=== PATIENT | male | born 1950 | race Caucasian/White ===

== ENCOUNTER 2021-01-11 06:28 | Inpatient (IN) | payer OTHER ==
[~2021-01-11] VITALS: Ht 182.9 cm; Wt 134.9 kg
[2021-01-11] VITALS (16 sets, daily range): BP systolic 67–185; BP diastolic 34–82
[2021-01-11 07:08] LABS: BASO % 0.5 % (0.0-1.0); EOS % 0.3 % (1.0-4.0); HEMATOCRIT 49.4 % (42.0-52.0); LYMPH # 1.4 10*3/uL (1.3-4.4); LYMPH % 15.9 % (27.0-41.0); MEAN CORPUSCULAR HGB 27.9 pg (27.0-31.0); MEAN CORPUSCULAR HGB CONC 31.4 g/dl (33.0-37.0); MEAN PLATELET VOLUME 9.3 fl (9.6-12.3); MONO # 0.6 10*3/uL (0.1-1.0); MONO % 6.5 % (3.0-9.0); NEUT # 6.7 10*3/uL (2.3-7.9); NEUT % 75.7 % (47.0-73.0); PLATELET COUNT AUTOMATED 254 10*3/uL (130-400); RED BLOOD COUNT 5.55 10*6/uL (4.50-5.90); RED CELL DISTRI WIDTH 13.6 % (0-14.5); WHITE BLOOD COUNT 8.9 10*3/uL (4.8-10.8)
[2021-01-11] MEDS ORDERED: LIPITOR40 MG PO (07:24)
[2021-01-11 07:25] LABS: ACT PARTIAL THROMBO TIME 25.2 SECONDS (20.0-32.1); INTERNATIONAL NORM RATIO 1.2 (2.0-3.5)
[2021-01-11 07:25] LABS: ALBUMIN 3.4 gm/dl (3.1-4.5); ALKALINE PHOSPHATASE 53 U/L (45-117); BUN 14 mg/dl (7-24); CHLORIDE 96 mmol/L (98-107); CREATININE 0.84 mg/dL (0.70-1.30); POTASSIUM 3.8 mmol/L (3.5-5.1); SGOT/AST 31 IU/L (3-35); SGPT/ALT 88 U/L (12-78); SODIUM 133 mmol/L (136-145)
[2021-01-11] MEDS ORDERED: METFORMIN HCL1000 M1 PO (07:25)
[2021-01-11] MEDS ORDERED: ESCITALOPRAM OX10 MG PO (07:26)
[2021-01-11] MEDS ORDERED: GLIMEPIRIDE4 M1 PO (07:26)
[2021-01-11] MEDS ORDERED: MEMANTINE HCL10 MG PO (07:27)
[2021-01-11] MEDS ORDERED: DONEPEZIL HCL10 MG PO (07:29)
[2021-01-11] MEDS ORDERED: CLARITIN10 MG PO (07:30)
[2021-01-11] MEDS ORDERED: CARVEDILOL25 MG PO (07:30)
[2021-01-11] MEDS ORDERED: ASPIRIN CHEWABL81 MG PO (07:30)
[2021-01-11 07:31] LABS: TROPONIN I < 0.015 ng/ml (<0.045)
[2021-01-11] MEDS ORDERED: VITAMIN D325 MC1 PO (07:31)
[2021-01-11 09:54] LABS: ABG BASE EXCESS 6.5 mmol/L (-2.0-2.0); ARTERIAL BLOOD GAS PO2 183.9 (80-90)
[2021-01-11 09:59] LABS: ARTERIAL BLOOD GAS PH 7.116 (7.35-7.45)
[2021-01-11 12:01] LABS: ABG BASE EXCESS 10.2 mmol/L (-2.0-2.0); ARTERIAL BLOOD GAS PO2 93.7 (80-90)
[2021-01-11 12:05] LABS: ARTERIAL BLOOD GAS PH 7.191 (7.35-7.45)
[2021-01-11 14:13] LABS: ABG BASE EXCESS 9.1 mmol/L (-2.0-2.0); ARTERIAL BLOOD GAS PO2 79.8 (80-90)
[2021-01-11 14:14] LABS: ARTERIAL BLOOD GAS PH 7.155 (7.35-7.45)
[2021-01-11 17:02] LABS: ABG BASE EXCESS 8.6 mmol/L (-2.0-2.0); ARTERIAL BLOOD GAS PH 7.346 (7.35-7.45); ARTERIAL BLOOD GAS PO2 71.8 (80-90)
[2021-01-11 19:40] LABS: ABG BASE EXCESS 10.7 mmol/L (-2.0-2.0); ARTERIAL BLOOD GAS PH 7.398 (7.35-7.45); ARTERIAL BLOOD GAS PO2 66.7 (80-90)
[2021-01-11 23:58] LABS: ABG BASE EXCESS 10.5 mmol/L (-2.0-2.0); ARTERIAL BLOOD GAS PH 7.44 (7.35-7.45)
[2021-01-12] VITALS (12 sets, daily range): BP systolic 91–137; BP diastolic 49–74
[2021-01-12 06:15] LABS: BASO % 0.3 % (0.0-1.0); EOS # 0.1 10*3/uL (0.0-0.4); EOS % 0.6 % (1.0-4.0); HEMATOCRIT 45.1 % (42.0-52.0); LYMPH # 1.9 10*3/uL (1.3-4.4); LYMPH % 17.4 % (27.0-41.0); MEAN CELL VOLUME 89.8 fl (80.0-94.0); MEAN CORPUSCULAR HGB 28.1 pg (27.0-31.0); MEAN CORPUSCULAR HGB CONC 31.3 g/dl (33.0-37.0); MEAN PLATELET VOLUME 9.6 fl (9.6-12.3); MONO # 1.2 10*3/uL (0.1-1.0); MONO % 11.4 % (3.0-9.0); NEUT # 7.5 10*3/uL (2.3-7.9); NEUT % 69.4 % (47.0-73.0); PLATELET COUNT AUTOMATED 225 10*3/uL (130-400); RED BLOOD COUNT 5.02 10*6/uL (4.50-5.90); RED CELL DISTRI WIDTH 14.1 % (0-14.5); WHITE BLOOD COUNT 10.8 10*3/uL (4.8-10.8)
[2021-01-12 06:21] LABS: CHLORIDE 99 mmol/L (98-107); POTASSIUM 3.5 mmol/L (3.5-5.1); SODIUM 139 mmol/L (136-145)
[2021-01-12 06:31] LABS: ACT PARTIAL THROMBO TIME 24.4 SECONDS (20.0-32.1); INTERNATIONAL NORM RATIO 1.2 (2.0-3.5)
[2021-01-12 06:38] LABS: ALBUMIN 2.9 gm/dl (3.1-4.5); ALKALINE PHOSPHATASE 41 U/L (45-117); CHOLESTEROL 145 mg/dL (<200); CREATININE 1.24 mg/dL (0.70-1.30); FREE T4 0.92 ng/dl (0.76-1.46); LDL CHOLESTEROL 49 mg/dL (9-159); SGOT/AST 18 IU/L (3-35); SGPT/ALT 52 U/L (12-78); THYROID STIM HORMONE (HS) 0.297 uIU/ml (0.358-4.75); TRIGLYCERIDES 325 mg/dl (<150)
[2021-01-12 06:42] LABS: BUN 28 mg/dl (7-24)
[2021-01-12 07:23] LABS: ABG BASE EXCESS 11.2 mmol/L (-2.0-2.0); ARTERIAL BLOOD GAS PH 7.464 (7.35-7.45); ARTERIAL BLOOD GAS PO2 62.1 (80-90)
[2021-01-12 07:39] LABS: VITAMIN D, 25-HYDROXY 27.1 ng/mL (30-100)
[2021-01-12 11:37] LABS: ABG BASE EXCESS 10.2 mmol/L (-2.0-2.0); ARTERIAL BLOOD GAS PH 7.411 (7.35-7.45); ARTERIAL BLOOD GAS PO2 80.8 (80-90)
[2021-01-13] VITALS (9 sets, daily range): BP systolic 96–146; BP diastolic 44–82
[2021-01-13 06:07] LABS: ALBUMIN 2.6 gm/dl (3.1-4.5); ALKALINE PHOSPHATASE 40 U/L (45-117); BUN 31 mg/dl (7-24); CHLORIDE 100 mmol/L (98-107); CREATININE 1.28 mg/dL (0.70-1.30); POTASSIUM 2.9 mmol/L (3.5-5.1); SGOT/AST 20 IU/L (3-35); SGPT/ALT 37 U/L (12-78); SODIUM 139 mmol/L (136-145); TOTAL PROTEIN 5.9 gm/dL (6.4-8.2)
[2021-01-13 06:10] LABS: BASO # 0.1 10*3/uL (0.0-0.1); BASO % 0.7 % (0.0-1.0); EOS # 0.2 10*3/uL (0.0-0.4); HEMATOCRIT 44.9 % (42.0-52.0); LYMPH # 1.6 10*3/uL (1.3-4.4); LYMPH % 18.9 % (27.0-41.0); MEAN CELL VOLUME 89.1 fl (80.0-94.0); MEAN CORPUSCULAR HGB 27.8 pg (27.0-31.0); MEAN CORPUSCULAR HGB CONC 31.2 g/dl (33.0-37.0); MEAN PLATELET VOLUME 9.6 fl (9.6-12.3); MONO % 11.4 % (3.0-9.0); NEUT # 5.7 10*3/uL (2.3-7.9); NEUT % 66.1 % (47.0-73.0); PLATELET COUNT AUTOMATED 212 10*3/uL (130-400); RED BLOOD COUNT 5.04 10*6/uL (4.50-5.90); RED CELL DISTRI WIDTH 14.6 % (0-14.5); WHITE BLOOD COUNT 8.7 10*3/uL (4.8-10.8)
[2021-01-13 07:36] LABS: ARTERIAL BLOOD GAS PH 7.433 (7.35-7.45); ARTERIAL BLOOD GAS PO2 82.8 (80-90)
[2021-01-13 12:47] LABS: ABG BASE EXCESS 10.1 mmol/L (-2.0-2.0); ARTERIAL BLOOD GAS PH 7.377 (7.35-7.45); ARTERIAL BLOOD GAS PO2 82.7 (80-90)
[2021-01-14] VITALS: BP 122/72
[2021-01-14 04:00] VITALS: BP 113/77
[2021-01-14 05:19] LABS: ALBUMIN 2.5 gm/dl (3.1-4.5); ALKALINE PHOSPHATASE 37 U/L (45-117); BUN 28 mg/dl (7-24); CHLORIDE 106 mmol/L (98-107); CREATININE 1.16 mg/dL (0.70-1.30); POTASSIUM 3.3 mmol/L (3.5-5.1); SGOT/AST 24 IU/L (3-35); SGPT/ALT 29 U/L (12-78); SODIUM 136 mmol/L (136-145)
[2021-01-14 06:11] LABS: BASO # 0.1 10*3/uL (0.0-0.1); BASO % 0.7 % (0.0-1.0); EOS # 0.3 10*3/uL (0.0-0.4); EOS % 4.1 % (1.0-4.0); HEMATOCRIT 45.1 % (42.0-52.0); LYMPH # 1.5 10*3/uL (1.3-4.4); LYMPH % 17.4 % (27.0-41.0); MEAN CELL VOLUME 91.9 fl (80.0-94.0); MEAN CORPUSCULAR HGB 27.7 pg (27.0-31.0); MEAN CORPUSCULAR HGB CONC 30.2 g/dl (33.0-37.0); MEAN PLATELET VOLUME 10.2 fl (9.6-12.3); MONO # 0.9 10*3/uL (0.1-1.0); MONO % 11.2 % (3.0-9.0); NEUT # 5.5 10*3/uL (2.3-7.9); NEUT % 65.9 % (47.0-73.0); PLATELET COUNT AUTOMATED 203 10*3/uL (130-400); RED BLOOD COUNT 4.91 10*6/uL (4.50-5.90); RED CELL DISTRI WIDTH 14.6 % (0-14.5); WHITE BLOOD COUNT 8.4 10*3/uL (4.8-10.8)
[2021-01-14 08:00] VITALS: BP 131/71
[2021-01-14 12:00] VITALS: BP 123/63
[2021-01-14 16:00] VITALS: BP 121/66
[2021-01-14 20:00] VITALS: BP 115/67
[2021-01-15] VITALS: BP 124/52
[2021-01-15 04:00] VITALS: BP 106/42
[2021-01-15 05:55] LABS: ALBUMIN 2.4 gm/dl (3.1-4.5); ALKALINE PHOSPHATASE 37 U/L (45-117); BUN 26 mg/dl (7-24); CHLORIDE 104 mmol/L (98-107); CREATININE 0.89 mg/dL (0.70-1.30); POTASSIUM 3.5 mmol/L (3.5-5.1); SGOT/AST 20 IU/L (3-35); SGPT/ALT 26 U/L (12-78); SODIUM 138 mmol/L (136-145); TOTAL PROTEIN 5.9 gm/dL (6.4-8.2)
[2021-01-15 06:34] LABS: BASO # 0.1 10*3/uL (0.0-0.1); BASO % 0.8 % (0.0-1.0); EOS # 0.5 10*3/uL (0.0-0.4); EOS % 6.1 % (1.0-4.0); HEMATOCRIT 41.8 % (42.0-52.0); LYMPH # 1.2 10*3/uL (1.3-4.4); LYMPH % 14.6 % (27.0-41.0); MEAN CELL VOLUME 90.7 fl (80.0-94.0); MEAN CORPUSCULAR HGB 27.8 pg (27.0-31.0); MEAN CORPUSCULAR HGB CONC 30.6 g/dl (33.0-37.0); MEAN PLATELET VOLUME 9.9 fl (9.6-12.3); MONO # 0.8 10*3/uL (0.1-1.0); MONO % 10.6 % (3.0-9.0); NEUT # 5.3 10*3/uL (2.3-7.9); NEUT % 67.3 % (47.0-73.0); PLATELET COUNT AUTOMATED 208 10*3/uL (130-400); RED BLOOD COUNT 4.61 10*6/uL (4.50-5.90); RED CELL DISTRI WIDTH 14.1 % (0-14.5); WHITE BLOOD COUNT 7.9 10*3/uL (4.8-10.8)
[2021-01-15 08:00] VITALS: BP 140/66
[2021-01-15 12:00] VITALS: BP 121/61
[2021-01-15 14:24] LABS: ABG BASE EXCESS 8.3 mmol/L (-2.0-2.0); ARTERIAL BLOOD GAS PH 7.458 (7.35-7.45); ARTERIAL BLOOD GAS PO2 71.4 (80-90)
[2021-01-15 16:00] VITALS: BP 125/63
[2021-01-15 20:00] VITALS: BP 140/69
[2021-01-16] VITALS: BP 142/73
[2021-01-16 08:00] VITALS: BP 128/72; BP 145/77
[2021-01-16 08:33] LABS: BASO # 0.1 10*3/uL (0.0-0.1); BASO % 0.8 % (0.0-1.0); EOS # 0.4 10*3/uL (0.0-0.4); EOS % 6.5 % (1.0-4.0); HEMATOCRIT 42.6 % (42.0-52.0); LYMPH # 1.1 10*3/uL (1.3-4.4); MEAN CELL VOLUME 88.9 fl (80.0-94.0); MEAN CORPUSCULAR HGB CONC 31.5 g/dl (33.0-37.0); MEAN PLATELET VOLUME 9.2 fl (9.6-12.3); MONO # 0.8 10*3/uL (0.1-1.0); MONO % 11.6 % (3.0-9.0); NEUT # 4.2 10*3/uL (2.3-7.9); NEUT % 63.3 % (47.0-73.0); PLATELET COUNT AUTOMATED 214 10*3/uL (130-400); RED BLOOD COUNT 4.79 10*6/uL (4.50-5.90); RED CELL DISTRI WIDTH 13.8 % (0-14.5); WHITE BLOOD COUNT 6.7 10*3/uL (4.8-10.8)
[2021-01-16 08:49] LABS: ALBUMIN 2.8 gm/dl (3.1-4.5); ALKALINE PHOSPHATASE 41 U/L (45-117); BUN 21 mg/dl (7-24); CHLORIDE 101 mmol/L (98-107); POTASSIUM 3.6 mmol/L (3.5-5.1); SGOT/AST 22 IU/L (3-35); SGPT/ALT 31 U/L (12-78); SODIUM 141 mmol/L (136-145); TOTAL PROTEIN 6.5 gm/dL (6.4-8.2)
[2021-01-16 12:00] VITALS: BP 133/72; BP 138/55
[2021-01-16 16:00] VITALS: BP 136/69
[2021-01-16 20:00] VITALS: BP 149/86
[2021-01-17] VITALS: BP 138/77
[2021-01-17 06:33] LABS: BASO # 0.1 10*3/uL (0.0-0.1); BASO % 1.5 % (0.0-1.0); EOS # 0.5 10*3/uL (0.0-0.4); EOS % 7.4 % (1.0-4.0); HEMATOCRIT 42.1 % (42.0-52.0); LYMPH # 1.1 10*3/uL (1.3-4.4); LYMPH % 18.3 % (27.0-41.0); MEAN CELL VOLUME 89.8 fl (80.0-94.0); MEAN CORPUSCULAR HGB 28.1 pg (27.0-31.0); MEAN CORPUSCULAR HGB CONC 31.4 g/dl (33.0-37.0); MEAN PLATELET VOLUME 9.6 fl (9.6-12.3); MONO # 0.8 10*3/uL (0.1-1.0); MONO % 13.7 % (3.0-9.0); NEUT # 3.6 10*3/uL (2.3-7.9); NEUT % 58.4 % (47.0-73.0); PLATELET COUNT AUTOMATED 221 10*3/uL (130-400); RED BLOOD COUNT 4.69 10*6/uL (4.50-5.90); RED CELL DISTRI WIDTH 13.8 % (0-14.5); WHITE BLOOD COUNT 6.1 10*3/uL (4.8-10.8)
[2021-01-17 06:50] LABS: ALBUMIN 2.8 gm/dl (3.1-4.5); ALKALINE PHOSPHATASE 41 U/L (45-117); BUN 16 mg/dl (7-24); CHLORIDE 104 mmol/L (98-107); POTASSIUM 3.5 mmol/L (3.5-5.1); SGOT/AST 27 IU/L (3-35); SGPT/ALT 36 U/L (12-78); SODIUM 141 mmol/L (136-145); TOTAL PROTEIN 6.3 gm/dL (6.4-8.2)
[2021-01-17 08:00] VITALS: BP 129/71
[2021-01-17 12:00] VITALS: BP 123/63
[2021-01-17 16:00] VITALS: BP 149/74
[2021-01-17 20:00] VITALS: BP 146/72
[2021-01-18] VITALS: BP 152/69
[2021-01-18 05:21] LABS: BUN 14 mg/dl (7-24); CHLORIDE 104 mmol/L (98-107); CREATININE 0.92 mg/dL (0.70-1.30); POTASSIUM 3.5 mmol/L (3.5-5.1); SODIUM 142 mmol/L (136-145)
[2021-01-18 06:21] LABS: BASO # 0.1 10*3/uL (0.0-0.1); BASO % 1.4 % (0.0-1.0); EOS # 0.4 10*3/uL (0.0-0.4); LYMPH # 1.5 10*3/uL (1.3-4.4); LYMPH % 25.4 % (27.0-41.0); MEAN CORPUSCULAR HGB CONC 31.1 g/dl (33.0-37.0); MEAN PLATELET VOLUME 9.5 fl (9.6-12.3); MONO # 0.7 10*3/uL (0.1-1.0); MONO % 11.2 % (3.0-9.0); NEUT # 3.2 10*3/uL (2.3-7.9); NEUT % 54.5 % (47.0-73.0); PLATELET COUNT AUTOMATED 240 10*3/uL (130-400); RED BLOOD COUNT 4.89 10*6/uL (4.50-5.90); RED CELL DISTRI WIDTH 13.7 % (0-14.5); WHITE BLOOD COUNT 5.8 10*3/uL (4.8-10.8)
[2021-01-18 08:00] VITALS: BP 139/68
[2021-01-18 12:00] VITALS: BP 134/75
[2021-01-18 16:00] VITALS: BP 127/92
[2021-01-18 20:00] VITALS: BP 153/78
[2021-01-19] VITALS: BP 142/69
[2021-01-19 06:39] LABS: BUN 14 mg/dl (7-24); CHLORIDE 103 mmol/L (98-107); CREATININE 0.85 mg/dL (0.70-1.30); POTASSIUM 3.6 mmol/L (3.5-5.1); SODIUM 136 mmol/L (136-145)
[2021-01-19 08:00] VITALS: BP 156/78
[2021-01-19] MEDS ORDERED: FUROSEMIDE20 M1 PO (11:59)
[2021-01-19] MEDS ORDERED: CARVEDILOL6.25 MG PO (11:59)
[2021-01-19 12:00] VITALS: BP 132/78
== END 2021-01-19 13:45 | disposition home or self-care (01) | DRG 208 ==
LOC: ED 06:28 → EDHOLD 09:12 → ICCU 09:12 → EDHOLD 09:50 → ICCU 10:05 → 4E 01-15 13:46
PROVIDERS: Emergency Medicine; Hospitalist; Internal Medicine; Internal Medicine Critical Care Medicine; Social Worker Clinical; ADMIT Student in an Organized Health Care Education/Training Program; ATTEND Student in an Organized Health Care Education/Training Program
PROC: 5A1945Z Respiratory Ventilation, 24-96 Consecutive Hours (ICD-10-PCS; principal; 2021-01-11)
PROC: 5A09357 Assistance with Respiratory Ventilation, Less than 24 Consecutive Hours, Continuous Positive Airway Pressure (ICD-10-PCS; 2021-01-11)
PROC: 0BH17EZ Insertion of Endotracheal Airway into Trachea, Via Natural or Artificial Opening (ICD-10-PCS; 2021-01-11)
PROC: 5A09357 Assistance with Respiratory Ventilation, Less than 24 Consecutive Hours, Continuous Positive Airway Pressure (ICD-10-PCS; 2021-01-13)
PROC: 5A0935A Assistance with Respiratory Ventilation, Less than 24 Consecutive Hours, High Flow/Velocity Cannula (ICD-10-PCS; 2021-01-13)
PROC: 5A09357 Assistance with Respiratory Ventilation, Less than 24 Consecutive Hours, Continuous Positive Airway Pressure (ICD-10-PCS; 2021-01-14)
PROC: 5A0935A Assistance with Respiratory Ventilation, Less than 24 Consecutive Hours, High Flow/Velocity Cannula (ICD-10-PCS; 2021-01-15)
PROC: 5A09357 Assistance with Respiratory Ventilation, Less than 24 Consecutive Hours, Continuous Positive Airway Pressure (ICD-10-PCS; 2021-01-15)
DX: J96.01 Acute respiratory failure with hypoxia (principal); G93.41 Metabolic encephalopathy; I62.00 Nontraumatic subdural hemorrhage, unspecified; I50.31 Acute diastolic (congestive) heart failure; E87.2 Acidosis; E87.3 Alkalosis; E44.0 Moderate protein-calorie malnutrition; E87.1 Hypo-osmolality and hyponatremia; Z68.41 Body mass index [BMI] 40.0-44.9, adult; I11.0 Hypertensive heart disease with heart failure; E11.65 Type 2 diabetes mellitus with hyperglycemia; F03.90 Unspecified dementia, unspecified severity, without behavioral disturbance, psychotic disturbance, mood disturbance, and anxiety; I16.0 Hypertensive urgency; I95.2 Hypotension due to drugs; E87.8 Other disorders of electrolyte and fluid balance, not elsewhere classified; R74.01 Elevation of levels of liver transaminase levels; E66.01 Morbid (severe) obesity due to excess calories; E78.5 Hyperlipidemia, unspecified; E87.6 Hypokalemia; K21.9 Gastro-esophageal reflux disease without esophagitis; D72.810 Lymphocytopenia; G47.33 Obstructive sleep apnea (adult) (pediatric); Z20.822 Contact with and (suspected) exposure to COVID-19; J96.02 Acute respiratory failure with hypercapnia